=== PATIENT | female | born 1990 | race Two or more races ===

== ENCOUNTER 2016-12-02 18:53 | Emergency (ER) | payer OTHER ==
[~2016-12-02] VITALS: Ht 152.4 cm; Wt 49.9 kg
[2016-12-02 19:10] VITALS: BP 98/63
[2016-12-02] MEDS ORDERED: IBUP-1060 PO (19:31)
--- NOTE | 2016-12-02 19:31 | PHYS DOC ---
Past Medical History Past Medical History: No Pertinent History Past Surgical History: No Surgical History Alcohol Use: None Drug Use: None Adult General Chief Complaint Chief Complaint: HAND PROBLEM HPI HPI Patient is a 26 year old female with no significant medical history who presents with right fourth and fifth metacarpal pain that began today when she was getting out of bed. Patient states she hyperflexed her ring finger and pinky finger. Review of Systems Review of Systems Constitutional: Denies fever or chills [] Eyes: Denies change in visual acuity, redness, or eye pain [] Musculoskeletal: right fourth and fifth metacarpal pain Integument: Denies rash or skin lesions [] Neurologic: Denies headache, focal weakness or sensory changes [] Endocrine: Denies polyuria or polydipsia [] Allergies Allergies Allergies Coded Allergies Type Severity Reaction Last Updated Verified No Known Drug Allergies 07/19/14 No Physical Exam Physical Exam Constitutional: Well developed, well nourished, no acute distress, non-toxic appearance. [] HENT: Normocephalic, atraumatic, bilateral external ears normal, oropharynx moist, no oral exudates, nose normal. [] Skin: Warm, dry, no erythema, no rash. [] Back: No tenderness, no CVA tenderness. [] Extremities: Right hand with no edema and no ecchymosis. No deformity to the right hand and fingers. Tenderness on palpation along the right fourth and fifth metacarpals. Full range of motion to the right hand and fingers including flexion and extension of the fingers at the MIP PIP and DIP joints. Adequate radial ulnar and medial sensation to the right +2 right radial pulse. Cap refill less than 2 seconds the right upper extremity. Neurologic: Alert and oriented X 3, normal motor function, normal sensory function, no focal deficits noted. [] Psychologic: Affect normal, judgement normal, mood normal. [] Current Patient Data Vital Signs Vital Signs Date Time Temp Pulse Resp B/P (MAP) Pulse Ox O2 Delivery O2 Flow Rate FiO2 12/02/16 19:10 98.3 74 18 100 Room Air 98.3 EKG EKG [] Radiology/Procedures Radiology/Procedures [] Course & Med Decision Making Course & Med Decision Making Pertinent Labs and Imaging studies reviewed. (See chart for details) Patient is in the ED with pain along her right hand fifth and fourth metacarpals that began after she applied pressure to the right hand and flexed her fingers trying to get out of bed. Right hand x-rays interpreted by Dr. Bell is negative for any acute findings. Vernon wrap applied to the right hand by the ED RN. Neurovascular exam done by me is normal, cap refill less than 2 seconds. Ice elevation encouraged. Follow-up with orthopedic doctor in one week if pain continues. Naproxen for pain. Dragon Disclaimer Dragon Disclaimer This electronic medical record was generated, in whole or in part, using a voice recognition dictation system. Departure Departure Impression: Primary Impression: Sprain of right hand Disposition: HOME, SELF-CARE Condition: STABLE Referrals: UNKNOWN PCP NAME (PCP) ANNE-MARIE JACQUES MD Follow-up in one week if pain continues with the provided orthopedic doctor. Patient Instructions: Finger Sprain Additional Instructions: You were seen for sprain of the right hand/fingers. Wear the Vernon wrap provided as tolerated and needed. Ice and elevate the extremity. Take naproxen or ibuprofen as needed for pain. Follow-up with the provided orthopedic doctor or your own doctor in one week if pain continues. Scripts Ibuprofen (IBUPROFEN) 800 Mg Tablet 800 MG PO PRN Q6HRS Y for INFLAMMATION, #30 TAB Prov: ISABEL CANCINO APRN 12/02/16 Problem Qualifiers Primary Impression: Sprain of right hand Encounter type: initial encounter Qualified Codes: S63.91XA - Sprain of unspecified part of right wrist and hand, initial encounter ISABEL CANCINO [employer] Dec 02, 2016 19:31
--- NOTE | 2016-12-03 09:11 | RAD ---
Right hand, 3 views, 12/02/2016: History: Injury, pain No fracture or dislocation is identified. The soft tissues are unremarkable. IMPRESSION: No acute right hand abnormality is detected.
== END 2016-12-02 19:36 | disposition home or self-care (01) ==
LOC: ER 18:53
DX: S63.91XA Sprain of unspecified part of right wrist and hand, initial encounter (principal); X50.9XXA Other and unspecified overexertion or strenuous movements or postures, initial encounter; Y93.89 Activity, other specified; Y92.89 Other specified places as the place of occurrence of the external cause; Y99.8 Other external cause status
CPT/HCPCS: 73130; 99284

== ENCOUNTER 2017-04-24 12:03 | Emergency (ER) | payer OTHER ==
[~2017-04-24 12:03] MED LIST: IBUP-1060 PO; ONDA4TAB10 PO
[2017-04-24 12:15] VITALS: BP 99/53
[2017-04-24] MEDS ORDERED: DIPHTH,PERTUSS(ACELL),TET TOX 0.5 ML DISP.SYRIN. VAX IM ONE (12:30)
[2017-04-24] MEDS ORDERED: AMOX1TAB61 PO (12:36)
--- NOTE | 2017-04-24 12:36 | PHYS DOC ---
Past Medical History Past Medical History: No Pertinent History Past Surgical History: No Surgical History Alcohol Use: None Drug Use: None Adult General Chief Complaint Chief Complaint: FINGER INJURY HPI HPI Patient is a 26 year old female presents the ED complaining of bite to left pinky finger. Patient states that she was actually bit by her 3-year-old daughter when they were playing. States it started to get red around the bite and she thought she should get it looked at. Full range of motion. Describes the pain as sharp. Rates the pain as 5/10. Denies fever, decreased range of motion, pain with movement, weakness, discharge. Review of Systems Review of Systems Constitutional: Denies fever or chills [] Eyes: Denies change in visual acuity, redness, or eye pain [] HENT: Denies nasal congestion or sore throat [] Respiratory: Denies cough or shortness of breath [] Cardiovascular: No additional information not addressed in HPI [] GI: Denies abdominal pain, nausea, vomiting, bloody stools or diarrhea [] : Denies dysuria or hematuria [] Musculoskeletal: Denies back pain or joint pain [] Integument: Denies rash or skin lesions [] Neurologic: Denies headache, focal weakness or sensory changes [] Endocrine: Denies polyuria or polydipsia [] All other systems were reviewed and found to be within normal limits, except as documented in this note. Current Medications Current Medications Current Medications Medications (Trade) Dose Ordered Sig/Rohan Start Time Stop Time Status Last Admin Dose Admin Diphtheria/ Tetanus/Acell Pertussis (Boostrix) 0.5 ml ONCE ONCE 04/24/17 12:30 04/24/17 12:31 DC 04/24/17 12:51 0.5 ML Allergies Allergies Allergies Coded Allergies Type Severity Reaction Last Updated Verified No Known Drug Allergies 07/19/14 No Physical Exam Physical Exam Constitutional: Well developed, well nourished, no acute distress, non-toxic appearance. [] HENT: Normocephalic, atraumatic, bilateral external ears normal, oropharynx moist, no oral exudates, nose normal. [] Eyes: PERRLA, EOMI, conjunctiva normal, no discharge. [] Neck: Normal range of motion, no tenderness, supple, no stridor. [] Cardiovascular:Heart rate regular rhythm, no murmur [] Lungs & Thorax: Bilateral breath sounds clear to auscultation [] Abdomen: Bowel sounds normal, soft, no tenderness, no masses, no pulsatile masses. [] Skin: Warm, dry, no erythema, no rash. [] Back: No tenderness, no CVA tenderness. [] Extremities: PEA SIZED ERYTHEMA AROUND LEFT DORSAL 5TH FINGER BITE WOUND. NO ABSCESS OR DRAINAGE. No circumferential injury. no cyanosis, no clubbing, ROM intact, no edema. [] Neurologic: Alert and oriented X 3, normal motor function, normal sensory function, no focal deficits noted. [] Psychologic: Affect normal, judgement normal, mood normal. [] Current Patient Data Vital Signs Vital Signs Date Time Temp Pulse Resp B/P (MAP) Pulse Ox O2 Delivery O2 Flow Rate FiO2 04/24/17 12:15 97.7 66 16 96 Room Air 97.7 EKG EKG [] Radiology/Procedures Radiology/Procedures [] Course & Med Decision Making Course & Med Decision Making Pertinent Labs and Imaging studies reviewed. (See chart for details) []Tetanus updated. Will treat with Augmentin outpatient. Discussed symptomatic treatment at home. Discussed reasons to return to the ED. Patient understands and agrees with plan. Family at bedside. Dragon Disclaimer Dragon Disclaimer This electronic medical record was generated, in whole or in part, using a voice recognition dictation system. Departure Departure Impression: Primary Impression: Cellulitis Additional Impression: Human bite Disposition: 01 HOME, SELF-CARE Condition: STABLE Referrals: NO PCP (PCP) CESAR RAI MD Patient Instructions: Cellulitis, Human Bite Scripts Amoxicillin/Potassium Clav (AUGMENTIN 875-125 TABLET) 1 Each Tablet 1 TAB PO BID, #20 TAB Prov: WILLEM SEPULVEDA 04/24/17 Problem Qualifiers WILLEM SEPULVEDA Apr 24, 2017 12:36
== END 2017-04-24 12:52 | disposition home or self-care (01) ==
LOC: ER 12:03
DX: L03.012 Cellulitis of left finger (principal); S60.477A Other superficial bite of left little finger, initial encounter; W50.3XXA Accidental bite by another person, initial encounter; Y93.89 Activity, other specified; Y99.8 Other external cause status; Y92.89 Other specified places as the place of occurrence of the external cause
CPT/HCPCS: 90471; 90715; 99283-25